=== PATIENT | female | born 1985 | race Native Hawaiian/Other Pacific Islander ===

== ENCOUNTER 2021-03-21 05:34 | Emergency (ER) | payer BC ==
--- NOTE | 2021-03-21 05:52 | Emergency Department Report ---
ED CPR HPI - General Stated Complaint: CARDIAC ARREST Time Seen by Provider: 03/21/21 05:48 Source: EMS - History of Present Illness Initial Comments: Patient is a 35 years old female with history of diabetes and blood clots accor ding to EMS report. Patient brought to the emergency room via EMS from home and a full cardiac arrest, CPR in progress. EMS stated that family reported that patient woke up this morning and walk for few steps and she collapsed after that. EMS stated that they immediately started ACLS protocol patient had a Yuri airway. Initial rhythm showed PEA. Patient received CPR, epinephrine and bicarb by EMS with no return of circulation. Upon arrival to the ER ACLS protocol continued. Initial rhythm showed asystole and then turned to PEA and remained in PEA for a while and then 10 to asystole. Patient received epinephrine, bicarb and calcium chloride. Unfortunately patient remained in asystole. Patient pronounced at 5:41 AM. Total resuscitation time is 45 minutes. Please refer to code sheet for further information. MD Complaint: collapsed during activity Place: home Initial Findings in the Field: no pulse, PEA Treatments Prior to Arrival: other airway device, chest compressions, epinephrine mgs #, sodium bicarbonate ED Review of Systems ROS: Stated complaint: CARDIAC ARREST Other details as noted in HPI Comment: Unobtainable due to pts medical conditions ED Physical Exam - General General appearance: other (CPR in progress.) - Eye Pupils: Present: other (5 mm fixed and dilated.) - Respiratory Respiratory exam: Present: other (No spontaneous breathing.) - Cardiovascular Cardiovascular Exam: Present: other (No spontaneous heart tones.) - GI/Abdominal GI/Abdominal exam: Present: soft. Absent: distended - Neurological Exam Neurological exam: Present: other (CPR in progress.) - Skin Skin exam: Present: warm, normal color Critical Care Time: Yes Critical care time in (mins) excluding proc time.: 35 Critical care attestation.: If time is entered above; I have spent that time in minutes in the direct care of this critically ill patient, excluding procedure time. ED Disposition Clinical Impression: Cardiopulmonary arrest Disposition: 20 Is pt being admited?: No Condition: Stable
== END 2021-03-21 07:00 ==
LOC: ED 05:34
DX: I46.9 Cardiac arrest, cause unspecified (principal)
CPT/HCPCS: 92950; 99285; 99291